=== PATIENT | male | born 1985 | race Caucasian/White ===

== ENCOUNTER 2020-12-14 13:03 | Emergency (ER) | payer BC, SELFPAY ==
--- NOTE | ~2020-12-14 | XR_ITS ---
XR abdomen/kub 1V 12/14/2020 13:36 INDICATION: Evaluate for foreign body. TECHNIQUE: KUB COMPARISON: None FINDINGS: Bowel gas pattern is normal. Moderate colonic fecal loading. There is no evidence of free a ir, mass, organomegaly, ascites or obstruction. No abnormal calculi are seen. The bones appear inta ct. No foreign bodies identified. IMPRESSION: 1: No acute abdominal abnormality identified. Reviewed, dictated and finalized at location B.
[2020-12-14 13:10] VITALS: BP 102/73; PULSE 86; RESP 20; TEMP 36.6; O2SAT 99
--- NOTE | 2020-12-14 14:08 | ED.GENADULT ---
HPI - General Adult General Chief complaint: Medical Clearance Stated complaint: fb in abdomen Time Seen by Provider: 12/14/20 13:35 Source: patient and police Mode of arrival: other (police) Limitations: no limitations History of Present Illness HPI narrative: Patient presents with [employer] with chief complaint of possible foreign body noted during scanning or intake. Patient denies swallowing any foreign bodies. Patient denies any symptoms or concerns. Related Data Allergies Allergy/AdvReac Type Severity Reaction Status Date / Time No Known Allergies Allergy Verified 12/14/20 13:13 Review of Systems Review of Systems: CONSTITUTIONAL: Denies fever, chills, or sweats. EYES: Denies visual changes, redness, or discharge. ENT: Denies rhinorrhea, congestion, sore throat, or otalgia. CARDIOVASCULAR: Denies chest pain, palpitations, or edema. RESPIRATORY: Denies cough or dyspnea. GASTROINTESTINAL: Reports possible foreign body denies abdominal pain, nausea, vomiting, or diarrhea. GENITOURINARY: Denies dysuria or hematuria. SKIN: Denies rash or itching. MUSCULOSKELETAL: Denies back pain, joint pain, or myalgia. NEUROLOGIC: Denies headache, numbness, dizziness, or weakness. PSYCHIATRIC: Denies anxiety or depression. Exam Narrative: GENERAL: Well-appearing, well-nourished, and in no acute distress. HEAD: Normocephalic, atraumatic. EYES: PERRLA and EOMI. CHEST: Clear to auscultation. No respiratory distress. No wheezes rales or rhonchi HEART: Regular rate and rhythm. No murmur heard. Normal peripheral pulses. ABDOMEN: Soft, nontender, nondistended, normal active bowel sounds. EXTREMITIES: Normal range of motion. No edema. SKIN: Warm, dry, no rash. NEURO: No focal deficits. Alert and oriented x3. PSYCH: Normal mood and affect. Course Vital Signs Vital signs: Vital Signs Temperature 98 F 12/14/20 13:10 Pulse Rate 86 12/14/20 13:10 Respiratory Rate 20 12/14/20 13:10 Blood Pressure 102/73 12/14/20 13:10 Pulse Oximetry 99 12/14/20 13:10 Temperature 98 F 12/14/20 13:10 Pulse Rate 86 12/14/20 13:10 Respiratory Rate 20 12/14/20 13:10 Blood Pressure 102/73 12/14/20 13:10 Pulse Oximetry 99 12/14/20 13:10 Medical Decision Making MDM Narrative Medical decision making narrative: No foreign bodies noted on x-ray. Patient states that he did not swallow any foreign bodies. Patient denies any symptoms or concerns. Patient is ready to be discharged back into the police custody. Vital Signs Vital Signs: Vital Signs Temperature 98 F 12/14/20 13:10 Pulse Rate 86 12/14/20 13:10 Respiratory Rate 20 12/14/20 13:10 Blood Pressure 102/73 12/14/20 13:10 Pulse Oximetry 99 12/14/20 13:10 Temperature 98 F 12/14/20 13:10 Pulse Rate 86 12/14/20 13:10 Respiratory Rate 20 12/14/20 13:10 Blood Pressure 102/73 12/14/20 13:10 Pulse Oximetry 99 12/14/20 13:10 Imaging Data Radiologist's impression: ITS Impressions Abdomen X-Ray 12/14/20 13:50 IMPRESSION: 1: No acute abdominal abnormality identified. Discharge Plan Discharge Clinical Impression: Encounter for general adult medical examination without abnormal findings Patient Disposition: Home, Self-Care Condition: Improved Instructions: Antibiotic Form Additional Instructions: No foreign bodies were seen on the x-ray. Follow-up/Referrals: PHYSICIAN,MARKING MACHINE OPERATOR [Primary Care Provider] - Time of Disposition: 14:11
[2020-12-14 14:18] VITALS: BP 115/78; PULSE 74; RESP 16; O2SAT 99
== END 2020-12-14 14:19 ==
PROVIDERS: Emergency Provider Emergency Medicine
DX: Z03.821 Encounter for observation for suspected ingested foreign body ruled out (principal)
CPT/HCPCS: 74018; 99283